=== PATIENT | female | born 1975 | race Caucasian/White ===

== ENCOUNTER → 2017-09-27 | Outpatient (CLI) | payer BC ==
[~2017-09-27] MED LIST: PRENTAB26 PO
== END | disposition home or self-care (01) ==
LOC: C.PAPS 16:17
PROVIDERS: ATTEND Obstetrics & Gynecology
DX: Z01.419 Encounter for gynecological examination (general) (routine) without abnormal findings (principal)

== ENCOUNTER → 2017-09-27 | Outpatient (CLI) | payer BC | END | disposition home or self-care (01) | LOC: C.LAB 11:36 | PROVIDERS: ATTEND Obstetrics & Gynecology | DX: O09.511 Supervision of elderly primigravida, first trimester (principal) ==

== ENCOUNTER → 2018-04-11 | Outpatient (CLI) | payer BC | END | disposition home or self-care (01) | LOC: C.LABSPEC 14:43 | PROVIDERS: ATTEND Obstetrics & Gynecology | DX: O09.513 Supervision of elderly primigravida, third trimester (principal); Z3A.00 Weeks of gestation of pregnancy not specified ==

== ENCOUNTER 2018-05-07 09:49 | Inpatient (IN) | payer BC ==
[~2018-05-07] VITALS: Ht 167.6 cm; Wt 111.6 kg
[2018-05-07] MEDS ORDERED: LACTATED RINGER'S 1000ML 1,000 ML IV PRN (20:27)
[2018-05-07] MEDS ORDERED: MISOPROSTOLTAB 50 MCG TAB PO ONE (20:30)
[2018-05-07 22:13] VITALS: Ht 167.6 cm; Wt 111.6 kg
[2018-05-07 22:28] LABS: HEMATOCRIT 35.8 % (37-47); HEMOGLOBIN 12.7 g/dL (12.0-16.0); MEAN CELL VOLUME 83.8 fL (80-100); MEAN CORPUSCULAR HEMOGLOBIN 29.7 pg (25-34); MEAN CORPUSCULAR HGB CONC 35.5 g/dl (32-36); MEAN PLATELET VOLUME 9.8 fL (7.4-10.4); PLATELET COUNT 203 K/uL (130-400); RED CELL DISTRIBUTION WIDTH CV 14.3 % (11.5-14.5); RED CELL DISTRIBUTION WIDTH SD 43.3 fL (36.4-46.3); WHITE BLOOD COUNT 6.22 K/uL (4.8-10.8)
[2018-05-08] MEDS ORDERED: DINOPROSTONE 10 MG INSERT PV ONE (02:00)
[2018-05-08] MEDS ORDERED: MISOPROSTOLTAB 50 MCG TAB PO ONE ×3 (11:30→22:30)
[2018-05-09] MEDS ORDERED: MISOPROSTOLTAB 50 MCG TAB PO ONE (03:45)
[2018-05-09] MEDS ORDERED: ACETAMINOPHEN 325 MG TAB PO PRN ×3 (04:15→17:00)
[2018-05-09] MEDS ORDERED: NURSING VERBAL MED ORDER ONE (04:15)
[2018-05-09] MEDS ORDERED: LACTATED RINGER'S 1000ML 500 ML IV PRN ×2 (08:43→11:23)
[2018-05-09] MEDS ORDERED: OXYTOCIN 30 UNITS/500ML NSS IV PRN ×2 (08:45→17:00)
[2018-05-09] MEDS: LACTATED RINGER'S 1000ML 1,000 ML IV SCH ×2 (09:14→11:30)
[2018-05-09] MEDS ORDERED: BUPIVACAINE 0.25% 30 ML VIAL ONE (10:24)
[2018-05-09] MEDS ORDERED: FENTANYL CITRATE INJ 50 MCG/1 ML 2 ML VIAL ONE (10:25)
[2018-05-09] MEDS ORDERED: EpHEDrine SULFATE INJ 50 MG/ML AMP ONE (10:25)
[2018-05-09] MEDS ORDERED: FENTANYL 2MCG/ML ROPIV 1.25MG/ML 100ML BAG ONE (10:26)
[2018-05-09] MEDS ORDERED: NALOXONE HCL INJ 1 MG in SODIUM CHLORIDE 0.9% 1000ML 1,000 ML IV PRN (11:23)
[2018-05-09] MEDS ORDERED: EpHEDrine SULFATE INJ 50 MG/ML AMP IV PRN (11:30)
[2018-05-09] MEDS ORDERED: DiphenhydrAMINE HCL 50 MG/ML VIAL IV PRN (11:30)
[2018-05-09] MEDS ORDERED: FENTANYL 2MCG/ML ROPIV 1.25MG/ML 100ML BAG EPI PRN (11:30)
[2018-05-09] MEDS ORDERED: ONDANSETRON INJ 2 MG/ML 2 ML VIAL IV PRN (11:30)
[2018-05-09] MEDS ORDERED: NALBUPHINE HCL INJ 10 MG/ML 1ML AMP IV PRN (11:30)
[2018-05-09] MEDS ORDERED: NALOXONE HCL INJ 0.4 MG/1 ML VIAL/CARP IV PRN (11:30)
[2018-05-09] MEDS ORDERED: METHYLERGONOVINE MALEATE 0.2 MG/ML AMP ONE (16:37)
[2018-05-09] MEDS ORDERED: OXYCODONE/ACETAMINOPHEN 5-325 TAB PO PRN (17:00)
[2018-05-09] MEDS ORDERED: DIPHTHERIA/TETANUS/PERTUSSIS 0.5 ML SYR/VIAL IM. ONE (17:00)
[2018-05-09] MEDS ORDERED: METHYLERGONOVINE MALEATE 0.2 MG/ML AMP IM ONE (17:00)
[2018-05-09] MEDS ORDERED: SUPERCREAM 0.870 % 15GM JAR EXT PRN (17:00)
[2018-05-09] MEDS ORDERED: BENZOCAINE 20% AER SPR 82.5 GM CAN EXT PRN (17:00)
[2018-05-09] MEDS ORDERED: ACETAMINOPHEN/CODEINE 300/30MG TAB PO PRN ×2 (17:00)
[2018-05-09] MEDS ORDERED: LANOLIN OINT EXT PRN (17:00)
[2018-05-09] MEDS ORDERED: HYDROCORTISONE ACETATE 25 MG SUPP PR PRN (17:00)
[2018-05-09] MEDS: IBUPROFEN 600 MG TAB PO PRN ×2 (17:44→23:52)
--- NOTE | 2018-05-09 18:25 | Anesthesia Procedure Note ---
Anesthesia Epidural Removal Nt Date & Time May 09, 2018 at 18:25 Vital Signs Pain Intensity: 3.0 Notes Mental Status: alert / awake / arousable, participated in evaluation Nausea / Vomiting: adequately controlled Pain: adequately controlled Airway Patency, RR, SpO2: stable & adequate BP & HR: stable & adequate Hydration State: stable & adequate Neuraxial Anesthesia: was administered Anesthetic Complications: no major complications apparent, pt satisfied with anesthetic care Epidural: removed without complications, with tip intact
--- NOTE | 2018-05-09 19:03 | OPERATIVE REPORT ---
DATE OF OPERATION: 05/09/2018 Mrs. Goodson was brought in for induction of labor due to persistent hypertension associated with headaches. Diastolics were recorded on several occasions over 100. At the time of admission, cervix was essentially unripe, was started with 50 mcg of p.o. Cytotec. She started to have contractions on that. We then went to a Cervidil tape. After about 10 hours of the Cervidil tape, we really had not much change, and then, I switched back to the p.o. Cytotec. I gave her several p.o. Cytotec about 5 hours apart, I think about 3 doses. With this, she went into active labor pattern, and when she was about 4+ cm, we switched to IV Pitocin. She started to contract regularly. We kept upping the Pitocin. At about 6 cm, she requested and received epidural anesthesia. She obtained good pain relief. I then ruptured the membrane surgically. Fluid was clear. Soon after rupturing the membranes, she went to full dilatation, the head came right down. With several pushes, she pushed out a live male infant via direct occiput anterior position over an intact perineum. There was a nuchal cord, which was easily reduced over the head. Body was delivered without difficulty. Cord was clamped and then cut by the father. Cord blood was taken. With IV Pitocin running, the placenta was removed intact. Following this, there was a little bit of bleeding, and we managed it with a dose of IM Methergine along with high-dose Pitocin. Inspection of the perineum revealed a first-degree laceration. The vaginal mucosa was approximated out to beyond the hymenal ring with a running Vicryl. The bulbocavernosus muscles were approximated with a deep suture of Vicryl, perineal body was approximated with a deep suture of Vicryl, and perineal skin edges were approximated with a running subcuticular suture of 2-0 Vicryl. Following this, vaginal exam including rectovaginal examination revealed no hematoma formation, sponges in the vagina. Patient's blood type is O positive and rubella immune. Estimated blood loss was 200 mL, 1 and 5 minute Apgars to my estimation were more about 8 and 9 respectively. I attest to the content of the Intraoperative Record and any orders documented therein. Any exception s are noted below.
[2018-05-09 20:16] VITALS: BP 132/80; PULSE 88; TEMP 36.9; O2SAT 99
[2018-05-09] MEDS: DOCUSATE SODIUM 100 MG CAP PO SCH (20:45)
[2018-05-09 22:35] VITALS: BP 136/94; PULSE 88; TEMP 36.6; O2SAT 98
[2018-05-10 03:35] VITALS: BP 133/87; PULSE 83; TEMP 36.5; O2SAT 98
[2018-05-10] MEDS: IBUPROFEN 600 MG TAB PO PRN ×3 (03:40→15:25)
[2018-05-10 07:20] LABS: HEMATOCRIT 36.2 % (37-47); HEMOGLOBIN 12.5 g/dL (12.0-16.0)
[2018-05-10 08:00] VITALS: BP 139/93; PULSE 84; TEMP 36.4
[2018-05-10] MEDS: DOCUSATE SODIUM 100 MG CAP PO SCH ×2 (10:22→19:59)
[2018-05-10] MEDS: FERROUS SULFATE 325 MG TAB PO SCH (10:22)
[2018-05-10] MEDS: PRENATAL VITAMIN TAB PO SCH (10:22)
--- NOTE | 2018-05-10 10:28 | Progress Note ---
Subjective May 10, 2018. Subjective conversation w/ patient Ambulation: ambulating normally Voiding: no voiding problems Passing Gas: Yes Diet Tolerance: Regular Diet Lochia: Small Feeding Type: Breast Feeding Review of Systems Constitutional: + fever Objective Vital Signs Date Time Temp Pulse Resp B/P (MAP) Pulse Ox O2 Delivery O2 Flow Rate FiO2 05/10/18 08:00 36.4 84 16 139/93 (108) Room Air 05/10/18 08:00 Room Air 05/10/18 03:35 36.5 83 18 133/87 (102) 98 Room Air 05/09/18 22:35 Room Air 05/09/18 22:35 36.6 88 16 136/94 (108) 98 Room Air 05/09/18 20:20 Room Air 05/09/18 20:16 36.9 88 16 132/80 (97) 99 Room Air Physical Exam General Appearance: WELL-APPEARING Abdomen: non tender Fundus: Firm, Non-Tender Extremities: no pedal edema, no calf tenderness Laboratory Results Last 24 Hours Test 05/10/18 06:46 Hemoglobin 12.5 g/dL Hematocrit 36.2 % Assessment and Plan Post- Day#: 1
[2018-05-10 13:00] VITALS: BP 127/86; PULSE 84; TEMP 36.5
[2018-05-10 15:30] VITALS: BP 127/84; PULSE 84; TEMP 36.3
[2018-05-10] MEDS ORDERED: BISACODYL 5 MG TABEC PO SCH (20:00)
[2018-05-11 01:00] VITALS: BP 113/81; PULSE 87; TEMP 36.7; O2SAT 97
[2018-05-11] MEDS: IBUPROFEN 600 MG TAB PO PRN ×2 (01:21→08:51)
[2018-05-11] MEDS ORDERED: BISACODYL 10 MG SUPP PR PRN (07:00)
[2018-05-11 07:50] VITALS: BP 128/85; PULSE 90; TEMP 36.7; O2SAT 98
[2018-05-11] MEDS: PRENATAL VITAMIN TAB PO SCH (08:50)
[2018-05-11] MEDS: FERROUS SULFATE 325 MG TAB PO SCH (08:50)
[2018-05-11] MEDS: DOCUSATE SODIUM 100 MG CAP PO SCH (08:50)
--- NOTE | 2018-05-11 10:40 | Progress Note ---
Subjective May 11, 2018. Subjective conversation w/ patient Ambulation: ambulating normally Voiding: no voiding problems Passing Gas: Yes Diet Tolerance: Regular Diet Lochia: Small Feeding Type: Breast Feeding Review of Systems Constitutional: + fever Objective Vital Signs Date Time Temp Pulse Resp B/P (MAP) Pulse Ox O2 Delivery O2 Flow Rate FiO2 05/11/18 07:50 36.7 90 16 128/85 (99) 98 Room Air 05/11/18 01:00 36.7 87 16 113/81 (92) 97 Room Air 05/11/18 01:00 Room Air 05/10/18 15:30 36.3 84 16 127/84 (98) Room Air 05/10/18 15:30 Room Air 05/10/18 13:00 36.5 84 16 127/86 (100) Room Air Physical Exam General Appearance: WELL-APPEARING Abdomen: non tender Fundus: Firm, Non-Tender Extremities: no pedal edema, no calf tenderness Assessment and Plan Post- Day#: 2
--- NOTE | 2018-05-11 10:42 | Discharge Instructions ---
Discharge Instructions Date of Service May 11, 2018. Admission Reason for Admission: Induction Discharge Discharge Diagnosis / Problem: hypertension term Discharge Goals Goal(s): Routine recovery after delivery Activity Recommendations Activity Limitations: as noted below ACTIVITY RECOMMENDATIONS: * Gradual return to full activity over the next 2-3 weeks. * No lifting - nothing heavier than baby over the next 2-3 weeks. * Do not engage in vigorous exercise, sexual activity or sports until cleared by your physician. * Do not drive or operate any motorized equipment until cleared by your physician. * You may shower/bathe daily. DIET: Resume Previous Diet If Breast-feeding: * Increase caloric intake by 500 calories, eat 3 well balanced meals, 2 high protein snacks a day and drink 6-8 8oz. glasses of fluid per day. BREAST CARE: If you are not breast feeding: * Wear a supportive bra 24 hours a day for one to two weeks. * Avoid stimulating your breasts and nipples as much as possible during the first few weeks after delivery. * When taking a shower, have the warm water hit your back, not breasts. * When your breasts feel full, apply ice packs. Usually three to four times a day helps ease the discomfort. * Take a mild pain medication (Tylenol / Motrin) when you are uncomfortable. If breast feeding: * Use breast milk to lubricate nipples. Lansinoh cream may be used for sore nipples. You do not need to remove cream prior to breast feeding. If using a different brand of cream, check the label for directions regarding removal of cream prior to nursing. * Wear a supportive bra. * If having problems with breasts or breast feeding, call a risk and insurance consultant or your health care provider. OVER THE COUNTER MEDICATION: * For discomfort or pain, you may use Acetaminophen (Tylenol), Ibuprofen (Advil ), or Naproxen (Aleve) following the package directions. * For constipation you may use Colace following the package directions. SPECIAL CARE INSTRUCTIONS: * Vaginal rest (no tampons, douching, intercourse) until after doctor 's visit. * control as discussed with doctor. * Verbalizes understanding of car seat law as reviewed with patient nursing. * Car Seat hand-out given and reviewed with patient by nursing. * Shaken baby information reviewed with patient by nursing. Call you doctor if: * Temperature greater than or equal to 100.4 degrees F or 38.0 degrees C. Take your temperature twice daily for a week. * Bleeding becomes heavier than the heaviest part of your period - saturating a sanitary pad within an hour. * Passing large clots. * Bleeding has a foul smelling odor. * Signs and symptoms of phlebitis: leg pain, warm, red or swollen area on leg. * "Baby Blues" lasting longer than two weeks. ++ If you have had a and incision has increased pain, redness, swelling, presence of any drainage, or if the incision starts to open up. If you have any questions or concerns, call your health care practitioner at [phone]. FOLLOW-UP VISIT: Please call the office at to schedule a 6 week examination. . Current Hospital Diet ACTIVITY RECOMMENDATIONS: * Gradual return to full activity over the next 2-3 weeks. * No lifting - nothing heavier than baby over the next 2-3 weeks. * Do not engage in vigorous exercise, sexual activity or sports until cleared by your physician. * Do not drive or operate any motorized equipment until cleared by your physician. * You may shower/bathe daily. DIET: Resume Previous Diet If Breast-feeding: * Increase caloric intake by 500 calories, eat 3 well balanced meals, 2 high protein snacks a day and drink 6-8 8oz. glasses of fluid per day. BREAST CARE: If you are not breast feeding: * Wear a supportive bra 24 hours a day for one to two weeks. * Avoid stimulating your breasts and nipples as much as possible during the first few weeks after delivery. * When taking a shower, have the warm water hit your back, not breasts. * When your breasts feel full, apply ice packs. Usually three to four times a day helps ease the discomfort. * Take a mild pain medication (Tylenol / Motrin) when you are uncomfortable. If breast feeding: * Use breast milk to lubricate nipples. Lansinoh cream may be used for sore nipples. You do not need to remove cream prior to breast feeding. If using a different brand of cream, check the label for directions regarding removal of cream prior to nursing. * Wear a supportive bra. * If having problems with breasts or breast feeding, call a risk and insurance consultant or your health care provider. OVER THE COUNTER MEDICATION: * For discomfort or pain, you may use Acetaminophen (Tylenol), Ibuprofen (Advil ), or Naproxen (Aleve) following the package directions. * For constipation you may use Colace following the package directions. SPECIAL CARE INSTRUCTIONS: * Vaginal rest (no tampons, douching, intercourse) until after doctor 's visit. * control as discussed with doctor. * Verbalizes understanding of car seat law as reviewed with patient nursing. * Car Seat hand-out given and reviewed with patient by nursing. * Shaken baby information reviewed with patient by nursing. Call you doctor if: * Temperature greater than or equal to 100.4 degrees F or 38.0 degrees C. Take your temperature twice daily for a week. * Bleeding becomes heavier than the heaviest part of your period - saturating a sanitary pad within an hour. * Passing large clots. * Bleeding has a foul smelling odor. * Signs and symptoms of phlebitis: leg pain, warm, red or swollen area on leg. * "Baby Blues" lasting longer than two weeks. ++ If you have had a and incision has increased pain, redness, swelling, presence of any drainage, or if the incision starts to open up. If you have any questions or concerns, call your health care practitioner at [phone]. FOLLOW-UP VISIT: Please call the office at to schedule a 6 week examination. Patient's current hospital diet: Regular Diet Discharge Diet Recommended Diet: Regular Diet Pending Studies Studies pending at discharge: no Medical Emergencies . Who to Call and When: Medical Emergencies: If at any time you feel your situation is an emergency, please call 911 immediately. . Non-Emergent Contact Non-Emergency issues call your: Rn Advice Call Non-Emergent contact if: temperature is above 100.5 . . "Provider Documentation" section prepared by Valente Mayo. .
[2018-05-11 12:28] VITALS: BP_DIAS 85; PULSE 90; TEMP 36.7
== END 2018-05-11 12:28 | disposition home or self-care (01) | DRG 775 ==
LOC: C.LD 19:15 → C.OBG 05-09 19:30
PROVIDERS: ADMIT Obstetrics & Gynecology; ATTEND Obstetrics & Gynecology
PROC: 10E0XZZ Delivery of Products of Conception, External Approach (ICD-10-PCS; principal; 2018-05-09)
PROC: 3E0P7GC Introduction of Other Therapeutic Substance into Female Reproductive, Via Natural or Artificial Opening (ICD-10-PCS; principal; 2018-05-09)
PROC: 10907ZC Drainage of Amniotic Fluid, Therapeutic from Products of Conception, Via Natural or Artificial Opening (ICD-10-PCS; principal; 2018-05-09)
PROC: 0HQ9XZZ Repair Perineum Skin, External Approach (ICD-10-PCS; principal; 2018-05-09)
DX: O13.4 Gestational [pregnancy-induced] hypertension without significant proteinuria, complicating childbirth (principal); O69.81X0 Labor and delivery complicated by cord around neck, without compression, not applicable or unspecified; O70.0 First degree perineal laceration during delivery; O09.513 Supervision of elderly primigravida, third trimester; Z3A.39 39 weeks gestation of pregnancy; Z37.0 Single live birth